=== PATIENT | female | born 1995 | race Caucasian/White ===

== ENCOUNTER 2018-12-14 16:22 | Emergency (ER) | payer BC, OTHER ==
[~2018-12-14] VITALS: Ht 165.1 cm; Wt 72.7 kg
[2018-12-14] MEDS ORDERED: LIDOCAINE 1% 10 ML VIAL INJ ONE (16:45)
[2018-12-14] MEDS ORDERED: LIDOCAINE 2% 5 ML JELLY TP ONE (16:45)
[2018-12-14] MEDS ORDERED: PERTUSS(ACELL),DIPH,TET VAC/PF 0.5 ML VIAL IM ONE (16:45)
[2018-12-14] MEDS ORDERED: POVIDONE-IODINE 10% 15 ML SOLUTION UD TP ONE (17:45)
[2018-12-14 18:21] VITALS: BP 141/83
== END 2018-12-14 18:59 | disposition home or self-care (01) ==
LOC: EMS 16:23 → EEVIPCON 16:23 → EMS 18:59
DX: S01.112A Laceration without foreign body of left eyelid and periocular area, initial encounter (principal); W01.198A Fall on same level from slipping, tripping and stumbling with subsequent striking against other object, initial encounter; Y93.89 Activity, other specified; Y92.89 Other specified places as the place of occurrence of the external cause; Y99.8 Other external cause status
CPT/HCPCS: 12013; 70486; 81025; 90471; 90715; 99284; J3490